=== PATIENT | female | born 1955 | race Caucasian/White ===

== ENCOUNTER 2020-11-03 19:29 | Emergency (ER) | payer MEDICARE, OTHER ==
[~2020-11-03] VITALS: Ht 157.5 cm; Wt 55.0 kg
[2020-11-03 21:34] LABS: CHLORIDE 110 mEq/L (98-107)
[2020-11-03] MEDS ORDERED: FUROSEMIDE 40MG/4ML VIAL IV ONE (23:00)
[2020-11-03] MEDS ORDERED: ASPIRIN 81MG TABLET PO ONE (23:00)
[2020-11-03] MEDS ORDERED: NITROGLYCERIN OINT 1GM/INCH UDPKT TD ONE (23:00)
[2020-11-03 23:21] LABS: BASOPHILS % 0.4 % (0.0-2.0); EOSINOPHILS % 2.9 % (0.0-5.0); LYMPHOCYTES % 37.3 % (20.0-50.0); MEAN CORPUSCULAR HEMOGLOBIN 52.3 pg (28.0-32.0); MEAN CORPUSCULAR VOLUME > 150.0 fL (81.0-99.0); MEAN PLATELET VOLUME 7.9 fl (7.4-10.4); MONOCYTES % 1.1 % (2.0-8.0); NEUTROPHILS % 58.3 % (40.0-76.0); PLATELET 84 x1000/uL (130-400); RED CELL DISTRIBUTION WIDTH 25.3 % (11.6-14.6)
[2020-11-03 23:28] LABS: HEMOGLOBIN. 6.3 g/dL (12.0-16.0)
[2020-11-03 23:29] LABS: HEMATOCRIT. 18.4 % (36.0-48.0)
[2020-11-03 23:35] LABS: PLATELET ESTIMATE DECREASED
[2020-11-04] MEDS ORDERED: ACETAMINOPHEN 325MG TABLET PO PRN ×2
[2020-11-04] MEDS ORDERED: MAGNESIUM/ALUMINUM HYDROXIDE/SIMETHICONE 30ML UDC PO PRN
[2020-11-04] MEDS ORDERED: ONDANSETRON HCL 4MG/2ML INJ IV PRN
[2020-11-04] MEDS ORDERED: DIPHENHYDRAMINE 50MG/ML VIAL IV PRN
[2020-11-04 00:25] LABS: TOTAL IRON BINDING CAPACITY 165 ug/dL (250-450)
[2020-11-04 01:14] LABS: VITAMIN B12 SERUM < 60 pg/mL (211-911)
[2020-11-04] MEDS ORDERED: CYANOCOBALAMIN 1000MCG/ML VIAL IM SCH (03:00)
[2020-11-04] MEDS ORDERED: POTASSIUM CHLORIDE 20MEQ TABLET SR PO SCH (03:00)
[2020-11-04 04:04] VITALS: BP 107/72
[2020-11-04] MEDS ORDERED: SODIUM CHLORIDE 0.9% INJ 3ML FLUSH IVF SCH (06:00)
== END 2020-11-04 04:20 | disposition short-term general hospital (02) ==
LOC: ER 19:29 → CANBEDREQ 11-04 12:13
DX: R60.0 Localized edema (principal); S90.821A Blister (nonthermal), right foot, initial encounter; I11.0 Hypertensive heart disease with heart failure; I50.9 Heart failure, unspecified; K21.9 Gastro-esophageal reflux disease without esophagitis; X58.XXXA Exposure to other specified factors, initial encounter; Y93.89 Activity, other specified; Y92.89 Other specified places as the place of occurrence of the external cause; Y99.8 Other external cause status; Z98.890 Other specified postprocedural states
CPT/HCPCS: 36415; 71045; 80053; 82270; 82607; 82746; 83540; 83550; 83735; 83880; 84100; 84484; 85025; 86850; 86900; 86901; 86920; 93005; 93970; 96374; 99285; J1940; J3420; P9016